=== PATIENT | female | born 1985 | race Caucasian/White ===

== ENCOUNTER → 2017-06-20 16:21 | Outpatient (CLI) | payer OTHER, SELFPAY ==
[2017-06-20 19:04] LABS: Chlamydia Trachomatis by PCR Negative (Negative); Neisserai gonorrhoeae by PCR Negative (Negative); Probe Check PASS; Sample Adequacy Control PASS; Specimen Processing Control PASS
== END ==
PROVIDERS: Visit Provider Obstetrics & Gynecology
DX: Z11.3 Encounter for screening for infections with a predominantly sexual mode of transmission (principal)
CPT/HCPCS: 87491; 87591

== ENCOUNTER → 2017-07-18 10:00 | Outpatient (CLI) | payer OTHER, SELFPAY ==
--- NOTE | 2017-07-18 10:00 | DT_ITS ---
This patient was seen during an EMR downtime July 18, 2017 - July 25, 2017. This patient may have a combination of paper and electronic documentation or all paper documentation. All documentation is viewable within the e-chart portion of [facility] for each patient visit.
[2017-07-24 02:42] LABS: Thyroid Stim Hormone (TSH) 3.23 uIU/mL (0.358-3.74)
[2017-07-24 02:48] LABS: Color, Urine Yellow (Yellow); Glucose, Dipstick NEGATIVE (Normal); Ketone-Dipstick Negative (Negative); Leukocyte Esterase-Dipstick 25 /ul (Negative); Nitrite-Dipstick Negative (Negative); Protein-Dipstick 15 mg/dl (Negative); Urine Bilirubin Dipstick Negative (Negative); Urine Clarity Sl Cldy (Clear); Urine Urobilinogen Normal (Normal)
[2017-07-24 02:49] LABS: Hematocrit 39.9 % (37-47); Hemoglobin 13.5 g/dl (12.0-15.0); Mean Corpuscular Volume 93.2 fL (81-99); Occult Blood-Urine Negative /ul (Negative); Red Blood Count 4.28 M/mm3 (4.2-5.4); White Blood Count 9.4 K/mm3 (4.4-11.0)
[2017-07-24 02:50] LABS: Differential Indicated SCAN CRITERIA MET; Lymphocyte % 19.6 % (19-41); Mean Corp Hgb Conc 33.8 g/gl (32-36); Mean Corpuscular Hgb 31.5 pg (27.0-32.0); Monocyte% 6.5 % (0-10); Neutrophil % 72.2 % (47-70); Platelet Count 196 K/mm3 (150-450); RBC Distribution Width CV 13.1 % (11.6-14.6); RBC Distribution Width SD 43.3 fl (35.1-43.9)
[2017-07-24 02:51] LABS: Absolute Lymphocyte Count 1.85 X10^3/ul (0.83-4.51); Absolute Neutrophil Count 8.6 X10^3/uL (2.0-7.7); Basophil% 0.1 % (0-1); Eosinophils% 1.6 % (0-5); Lymphocyte # 1.85 X10^3/ul (4.0); Neutrophil # 6.81 X10^3/uL (2.7-7.7); Platelet Estimate ADEQUATE (ADEQ); Red Cell Morphology NORM C+C NORMAL (NORM C&C)
[2017-07-24 13:36] LABS: Prenatal RPR NONREACTIVE (NONREACTIVE)
[2017-07-25 13:11] LABS: HIV - WCH Nonreactive (Nonreactive); Rubella IgG 216.4 IU/mL
[2017-07-25 13:13] LABS: HEPATITIS B SURFACE AG NEGATIVE; Hep C Antibodies <0.1
== END ==
PROVIDERS: Visit Provider Obstetrics & Gynecology
DX: Z34.82 Encounter for supervision of other normal pregnancy, second trimester (principal)
CPT/HCPCS: 36415; 81002; 84443; 85025; 86703; 86762; 86803; 87340

== ENCOUNTER → 2017-09-22 08:46 | Outpatient (CLI) | payer OTHER, SELFPAY ==
[2017-09-22 11:31] LABS: Glucose Challenge Gest 1H 50g 100 mg/dL (70-140); Hematocrit 34.5 % (37-47); Hemoglobin 11.3 g/dl (12.0-15.0); Mean Corp Hgb Conc 32.8 g/gl (32-36); Mean Corpuscular Hgb 31.3 pg (27.0-32.0); Mean Corpuscular Volume 95.6 fL (81-99); Mean Platelet Vol. 10.4 fl (6.2-12.0); Platelet Count 164 K/mm3 (150-450); RBC Distribution Width CV 13.6 % (11.6-14.6); RBC Distribution Width SD 46.9 fl (35.1-43.9); Red Blood Count 3.61 M/mm3 (4.2-5.4); White Blood Count 7.8 K/mm3 (4.4-11.0)
[2017-09-22 11:34] LABS: Scan Indicated on CBC? Y/N NO
== END ==
PROVIDERS: Visit Provider Obstetrics & Gynecology
DX: Z36.85 Encounter for antenatal screening for Streptococcus B (principal)
CPT/HCPCS: 36415; 82950; 85027

== ENCOUNTER 2017-10-06 19:39 | Outpatient (CLI) | payer OTHER, SELFPAY ==
[2017-10-06 20:23] VITALS: BMI 27.0
--- NOTE | 2017-10-06 23:55 | OB.TRI.NOTE ---
- Problem List (1) 29 weeks gestation of Status: Acute (2) False labor before 37 completed weeks of gestation Status: Acute Qualifiers: Trimester: third trimester Qualified Code(s): O47.03 - False labor before 37 completed weeks of gestation, third trimester History of Present Illness Date of Service: 10/06/17 Was patient seen by the physician?: No Reason For Visit: R/O LABOR Final LEONARDO: 12/22/17 Gestational age: 29 Weeks and 1 Days History of Present Illness: 31yo at 29wga with c/o discomfort Allergies No Known Allergies Allergy (Verified 10/30/14 10:41) NST - FHR Rate Baby A Baseline: 140 Variability:: Moderate Accelerations:: 15 x 15 Decelerations:: None NST Reactive:: Yes, Appropriate for gestational age FHR Category:: Category I Uterine Activity:: 0/10 Impression/Plan 31yo at 29wga with false labor, Cat I FHR -d/c home
== END 2017-10-06 20:45 | disposition home or self-care (01) ==
LOC: OBS 20:11 → WP 10-07 08:03
PROVIDERS: Visit Provider Obstetrics & Gynecology
DX: O47.03 False labor before 37 completed weeks of gestation, third trimester (principal); Z3A.29 29 weeks gestation of pregnancy
CPT/HCPCS: 59025; 59050; 99218; G0378

== ENCOUNTER → 2017-11-29 18:05 | Outpatient (CLI) | payer OTHER, SELFPAY ==
[2017-11-29 19:20] LABS: Group B Strep DNA By PCR Negative (Negative); Internal Control PASS; Probe Check PASS; Specimen Processing Control PASS
== END ==
PROVIDERS: Referring Provider Obstetrics & Gynecology; Visit Provider Obstetrics & Gynecology
DX: Z36.85 Encounter for antenatal screening for Streptococcus B (principal)
CPT/HCPCS: 87081; 87653

== ENCOUNTER 2017-12-17 10:44 | Inpatient (IN) | payer SELFPAY ==
[2017-12-17 10:15] VITALS: BMI 29.0
[2017-12-17 10:40] LABS: ROM Internal Control Test YES-OK TO RESULT pt. (Internal QC)
[2017-12-17 10:41] LABS: ROM Patient Test POSITIVE (Negative)
[2017-12-17] MEDS: Lactated Ringers 1,000 ML 50 ML IV (11:25)
[2017-12-17 11:46] LABS: Hematocrit 41.9 % (37-47); Hemoglobin 14.1 g/dl (12.0-15.0); Mean Corp Hgb Conc 33.7 g/gl (32-36); Mean Corpuscular Hgb 32.4 pg (27.0-32.0); Mean Corpuscular Volume 96.3 fL (81-99); Platelet Count 168 K/mm3 (150-450); RBC Distribution Width CV 13.2 % (11.6-14.6); RBC Distribution Width SD 45.1 fl (35.1-43.9); Red Blood Count 4.35 M/mm3 (4.2-5.4); Scan Indicated on CBC? Y/N NO; White Blood Count 14.8 K/mm3 (4.4-11.0)
--- NOTE | 2017-12-17 11:51 | PCM.PN.BLA ---
Progress Note LABOR PROGRESS NOTE 39 2/7 wk presents for dec FM today. AVSS EFM 130-140s avg variability. UCs q 4-7+ mins CX 3 cm in ofc last check ROM test positive 10:20 am. CBC plts 168 K and Hgb 14.1 g/dl. WBCs 71588 A/P: 39 2/7 wk SROM GBS neg. Admit Planned induction for Tu, 12/20/17 and planned epidural (concerned might be too thick to feel to push) prior to AROM Pitocin. H/o precipitous labor stated. Place epidural. Then begin pitocin, and exam to AROM if forebag noted.
--- NOTE | 2017-12-17 11:54 | PN_ITS ---
Progress Note LABOR PROGRESS NOTE 39 2/7 wk presents for dec FM today. AVSS EFM 130-140s avg variability. UCs q 4-7+ mins CX 3 cm in ofc last check ROM test positive 10:20 am. CBC plts 168 K and Hgb 14.1 g/dl. WBCs 22029 A/P: 39 2/7 wk SROM GBS neg. Admit Planned induction for Tu, 12/20/17 and planned epidural (concerned might be too thick to feel to push) prior to AROM Pitocin. H/o precipitous labor stated. Place epidural. Then begin pitocin, and exam to AROM if forebag noted.
[2017-12-17] MEDS: fentaNYL-bupivacaine (epidural) 100 ML BAG EPIDURAL (12:30)
--- NOTE | 2017-12-17 12:59 | PCM.PN.BLA ---
Progress Note LABOR PROGRESS NOTE Comfortable p epidural placed. Cool cloth on forehead 2/2 nausea with dec BP Fluid bolus infusing AVSS Pitocin initiated. EFM reassuring. 130-140 avg variability accels. UCs q 3-5 min CX: 7/-3 arom scant clear to pink discharge. A/P: 39 2/7 wk SROM by +ROM test. Small forebag noted and ruptured. Pitocin position changes oro/ str cath bladder to facilitate rotation, descent. Anticipate
[2017-12-17] MEDS: Oxytocin 30 units/NS 500 ml 30 UNITS/500 ML IV.SOLN IV (13:00)
[2017-12-17] MEDS: Oxytocin 30 units/NS 500 ml 30 UNITS/500 ML IV.SOLN 334 UNITS IV (14:50)
--- NOTE | 2017-12-17 14:55 | PCM.OB.VAG ---
Vaginal Delivery Maternal Presentation: Active Labor 39 2/7 wk presents with dec FM. +ROM Amniotic Membrane Rupture Type: Spontaneous at home Amniotic Fluid Description: Clear Final LEONARDO: 12/22/17 Final LEONARDO Source: US <20 weeks Gestational age: 39 Weeks and 2 Days Date of Procedure: 12/17/17 Pre-Operative Diagnosis: 39 2/7 wk SROM Post-Operative Diagnosis: same Surgery/ Procedure Performed: Spontaneous Vaginal Delivery Anesthesiologist: Lui Holloway Type of Anesthesia: Epidural Description of Procedure: of a todd viable female over intact perineum. Head delivered RUBÉN. No nuchal cord. Shoulders delivered easily. OP and nares bulb suctioned after delivery. Cord clamped x two and cut. to RN to be dried per pt request. 7# 14 oz. Ap 8/9 PP exam; 1st deg posterior vaginal laceration. repaired to hemostatic with single fig of 8 stitch of 3-0 Vicryl Rapide. no other lacerations or repair required. Placenta delivered by spont expulsion, expression. 3V intact, normal appearing with trailing membranes. EBL 350 cc pt and tolerated delivery well. to recovery stable condition. Ray silviano counts correct x two. Presentation: Vertex Placental Delivery Description: Spontaneous, Expressed Placenta Disposition: [facility] Cord Vessel Description: 3 Vessels Cord Entanglement: None Drain: [place] to straight drain Estimated Blood Loss: 350 Infant A gender: Female (1 minute): 8 (5 minute): 9 Episiotomy Description: None Laceration: Midline, Vaginal Extension/lac - repaired., 1st degree Medications given after delivery: IV Pitocin Complications: None
--- NOTE | 2017-12-17 14:59 | PCM.DCVAG ---
Discharge Diet: No Restrictions Discharge Activity: May Shower, May Take a Tub Bath Return to work on:: 01/30/18 May resume sexual activity in: 4-6 weeks Additional Activity Instructions:: Nothing in the vagina for 4-6 weeks. You may return to work/school in 6 weeks. Additional Instructions: If you experience any of the following, contact your healthcare provider. Bleeding that soaks a pad every hour for 2 hours Fever 100.4 or higher Unrelieved abdominal pain Problems urinating (including inability to urinate or burning while urinating). Visual changes Severe headache Flu-like symptoms Pain or redness in one of both of your breasts Pain, warmth, tenderness or swelling in your legs, especially the calf area Frequent nausea and vomiting Symptoms of depression or anxiety If you experience any of the following, call 911 or go to the nearest Emergency Room. Chest pain Problems breathing Seizure activity Partial or complete paralysis of a body part, slurred speech, weakness or drooping of the face, or a sudden inability to walk or hold your balance Allergies/Adverse Reactions: Allergies No Known Allergies Allergy (Verified 12/17/17 10:45) Medications to take at Discharge Vits [Prenatabs FA] 1 tablet PO DAILY 10/30/14 Dextrin [Fiber] 1 pwd PO DAILY 10/06/17 [place]-3 Fatty Acids [[place]-3] 1 cap PO DAILY 10/06/17 Please Follow Up With: Anisa Nayak MD - [phone] When: Call to make an appointment with your doctor in 6 weeks. Test Results: Test results from this visit will be discussed in further detail at your follow-up appointment, if applicable. Proposed Discharge Date: 12/19/17
--- NOTE | 2017-12-17 15:00 | DCINST_ITS ---
Discharge Diet: No Restrictions Discharge Activity: May Shower, May Take a Tub Bath Return to work on:: 01/30/18 May resume sexual activity in: 4-6 weeks Additional Activity Instructions:: Nothing in the vagina for 4-6 weeks. You may return to work/school in 6 weeks. Additional Instructions: If you experience any of the following, contact your healthcare provider. * Bleeding that soaks a pad every hour for 2 hours * Fever 100.4 or higher * Unrelieved abdominal pain * Problems urinating (including inability to urinate or burning while urinating). * Visual changes * Severe headache * Flu-like symptoms * Pain or redness in one of both of your breasts * Pain, warmth, tenderness or swelling in your legs, especially the calf area * Frequent nausea and vomiting * Symptoms of depression or anxiety If you experience any of the following, call 911 or go to the nearest Emergency Room. * Chest pain * Problems breathing * Seizure activity * Partial or complete paralysis of a body part, slurred speech, weakness or drooping of the face, or a sudden inability to walk or hold your balance Allergies/Adverse Reactions: Allergies No Known Allergies Allergy (Verified 12/17/17 10:45) Medications to take at Discharge Vits [Prenatabs FA] 1 tablet PO DAILY 10/30/14 Dextrin [Fiber] 1 pwd PO DAILY 10/06/17 [place]-3 Fatty Acids [[place]-3] 1 cap PO DAILY 10/06/17 Please Follow Up With: Anisa Nayak MD - [phone] When: Call to make an appointment with your doctor in 6 weeks. Test Results: Test results from this visit will be discussed in further detail at your follow- up appointment, if applicable. Proposed Discharge Date: 12/19/17
[2017-12-17] MEDS: Oxytocin 30 units/NS 500 ml 30 UNITS/500 ML IV.SOLN 167 UNITS IV (15:20)
[2017-12-17] MEDS: Acetaminophen 500 MG Tablet 1000 MG PO (18:50)
[2017-12-17 19:30] VITALS: BP 124/77; PULSE 100; RESP 18; TEMP 37.6
[2017-12-17 19:34] VITALS: TEMP 37.1
--- NOTE | 2017-12-17 19:36 | NURSING ---
infant CPR video provided to pt at this time; states she will review information and certificate, as well
[2017-12-18] VITALS (7 sets, daily range): BP systolic 91–122; BP diastolic 50–79; PULSE 67–89; RESP 14–18; TEMP 36.6–36.9; O2SAT 97
[2017-12-18] MEDS: Ibuprofen 600 MG Tablet PO ×4 (00:52→21:39)
--- NOTE | 2017-12-18 08:18 | PCM.PN.OB ---
Subjective: PPD#1 Doing well. Nursing. Baby is doing well with this. relates very good epidural in labor and happy with all. States more cramping with nursing that with her others, but Ibuprofen is ok and she has Advil at home. Would like to go home today if baby is released. - Physical Exam General: Alert, Oriented x3, Cooperative, No apparent distress HEENT: Atraumatic Abdomen: Soft - Fundus firm NT at umbilicus Psych/Mental Status: Normal Affect Vital Signs Temp Pulse Resp BP Pulse Ox 98.0 F 84 16 118/76 97 12/18/17 07:55 12/18/17 07:55 12/18/17 07:55 12/18/17 07:55 12/18/17 07:55 Oxygen Delivery Method Room Air Weight: 81.647 kg Body Mass Index (BMI) 29.0 Intake and Output for Last 24 Hours 12/16/17 12/17/17 12/18/17 23:59 23:59 22:59 Output Total 1500 / 1500 Balance -1500 / -1500 Laboratory Tests Past 24 Hrs 12/17/17 12/17/17 12/17/17 10:20 11:25 11:25 WBC 14.8 H RBC 4.35 Hgb 14.1 Hct 41.9 MCV 96.3 MCH 32.4 H MCHC 33.7 RDW 13.2 RDW Differential 45.1 H Plt Count 168 MPV 11.0 Vag Amniotic Fld Detect POSITIVE H Blood Type A POSITIVE Antibody Screen NEGATIVE Medical Necessity - Tobacco Use Smoking Status: Never smoker Assessment/Plan All Active Problems 29 weeks gestation of (Resolved) False labor before 37 completed weeks of gestation (Resolved) PPD#2 Stable pp. Discharge home today. RTO in 6 wk for appt as scheduled.
[2017-12-18] MEDS: Prenatal Vits Tablet 1 TABLET PO (10:01)
[2017-12-18] MEDS: Dibucaine 30 GM Tube 1 APPLIC TOPICAL (14:52)
[2017-12-19 01:06] VITALS: BP 111/69; PULSE 80; RESP 18; TEMP 36.6
--- NOTE | 2017-12-19 08:35 | PCM.PN.OB ---
Subjective: PPD#2 doing well with nursing. Minimal pain. Baby under bili lights yesterday for inc bili. Levels pending this am. Objective: Just finished nursing. Baby asleep on her lap - Physical Exam General: Alert, Oriented x3, Cooperative, No apparent distress HEENT: Atraumatic Neck: Supple Abdomen: Soft - Fundus firm NT at umbilicus Neurological: Cranial nerves II-XII grossly intact Psych/Mental Status: Normal Affect Vital Signs Temp Pulse Resp BP Pulse Ox 97.9 F 80 18 111/69 97 12/19/17 01:06 12/19/17 01:06 12/19/17 01:06 12/19/17 01:06 12/18/17 07:55 Oxygen Delivery Method Room Air Weight: 81.647 kg Body Mass Index (BMI) 29.0 Intake and Output for Last 24 Hours 12/18/17 12/18/17 12/19/17 00:59 23:59 23:59 Output Total Balance Medical Necessity - Tobacco Use Smoking Status: Never smoker Assessment/Plan All Active Problems 29 weeks gestation of (Resolved) False labor before 37 completed weeks of gestation (Resolved) PPD#2 Stable pp. Discharge home today. RTO in 6 wk for appt as scheduled.
[2017-12-19 09:30] VITALS: BP 115/64; PULSE 92; RESP 14; TEMP 36.9; O2SAT 95
[2017-12-19] MEDS: Prenatal Vits Tablet 1 TABLET PO (11:42)
== END 2017-12-19 11:55 | disposition home or self-care (01) | DRG 807 ==
LOC: WPOUT 10:46
PROVIDERS: Admitting Provider Obstetrics & Gynecology; Referring Provider Obstetrics & Gynecology; Visit Provider Obstetrics & Gynecology
DX: O71.4 Obstetric high vaginal laceration alone (principal); Z37.0 Single live birth; Z3A.39 39 weeks gestation of pregnancy
CPT/HCPCS: 59050; 84112; 85027; 86850; 86900; 99218; J7120; G0378

== ENCOUNTER 2018-01-02 09:52 | Outpatient (CLI) | payer OTHER, SELFPAY | END 2018-01-02 10:30 | disposition home or self-care (01) | LOC: WPOUT 09:53 → WP 09:53 | PROVIDERS: Referring Provider Obstetrics & Gynecology; Visit Provider Obstetrics & Gynecology | DX: Z39.1 Encounter for care and examination of lactating mother (principal) | CPT/HCPCS: 96152 ==

== ENCOUNTER → 2018-05-26 10:56 | Outpatient (CLI) | payer OTHER, SELFPAY ==
[2018-05-26 12:50] LABS: Progesterone Level 0.44 ng/mL (See Comment)
[2018-05-26 12:58] LABS: Pregnancy, Serum, hCG Quali. NEGATIVE Negative (0-9 Nonpreg)
== END ==
PROVIDERS: Visit Provider Obstetrics & Gynecology
DX: Z30.430 Encounter for insertion of intrauterine contraceptive device (principal)
CPT/HCPCS: 36415; 84144; 84703

== ENCOUNTER → 2019-02-21 13:25 | Outpatient (CLI) | payer SELFPAY ==
[2019-02-26 14:08] LABS: Age Gdln ACOG Testing 30-65 (.)
[2019-02-27 10:03] LABS: HPV APTIMA, High Risk Negative (Negative); HPV Reflexed? NOT INDICATED
== END ==
PROVIDERS: Visit Provider Obstetrics & Gynecology
DX: Z12.4 Encounter for screening for malignant neoplasm of cervix (principal)
CPT/HCPCS: 88175; G0145

== ENCOUNTER → 2019-10-09 10:07 | Outpatient (CLI) | payer SELFPAY ==
[2019-10-09 13:44] LABS: Color, Urine Straw (Yellow); Glucose, Dipstick Normal (Normal); Ketone-Dipstick Negative (Negative); Leukocyte Esterase-Dipstick Negative /ul (Negative); Nitrite-Dipstick Negative (Negative); Occult Blood-Urine Negative /ul (Negative); Protein-Dipstick Negative (Negative); Urine Bilirubin Dipstick Negative (Negative); Urine Clarity Clear (Clear); Urine Urobilinogen Normal (Normal)
[2019-10-09 13:46] LABS: Absolute Lymphocyte Count 1.92 X10^3/uL (0.83-4.51); Absolute Neutrophil Count 7.5 X10^3/uL (2.0-7.7); Basophil# 0.02 X10^3/uL; Basophil% 0.2 % (0-1); Eosinophil# 0.25 X10^3/uL; Eosinophils% 2.4 % (0-5); Hematocrit 39.7 % (37-47); Hemoglobin 13.2 g/dL (12.0-15.0); Lymphocyte # 1.92 X10^3/ul (4.0); Lymphocyte % 18.6 % (19-41); Mean Corp Hgb Conc 33.2 g/dL (32-36); Mean Corpuscular Hgb 31.1 pg (27.0-32.0); Mean Corpuscular Volume 93.4 fL (81-99); Monocyte# 0.58 X10^3/uL; Monocyte% 5.6 % (0-10); NRBC Flagged by Analyzer 0 % (0-5); Neutrophil # 7.49 X10^3/uL (2.7-7.7); Neutrophil % 72.7 % (47-70); Platelet Count 216 K/mm3 (150-450); RBC Distribution Width CV 12.7 % (11.6-14.6); RBC Distribution Width SD 43.2 fl (35.1-43.9); Red Blood Count 4.25 M/mm3 (4.2-5.4); White Blood Count 10.3 K/mm3 (4.4-11.0)
[2019-10-09 14:07] LABS: Thyroid Stim Hormone (TSH) 1.98 uIU/mL (0.358-3.74)
[2019-10-09 14:43] LABS: HIV - WCH Non-Reactive (Nonreactive); Hepatitis B Surface Antigen Non-Reactive (Nonreactive); Hepatitis C Antibody Non-Reactive (Nonreactive); Rubella IgG 153.9 IU/mL
[2019-10-09 14:57] LABS: Amphetamine Urine VISTA NEGATIVE (<1000 ng/mL); Barbiturate Urine VISTA NEGATIVE (< 200 ng/mL); Benzodiazepine Urine VISTA NEGATIVE (< 200 ng/mL); Cocaine Urine VISTA NEGATIVE (< 300 ng/mL); Ecstacy Urine VISTA NEGATIVE (< 500 ng/mL); Methadone Urine VISTA NEGATIVE (< 300 ng/mL); PCP Urine VISTA NEGATIVE (< 25 ng/mL); THC Urine VISTA NEGATIVE (< 50 ng/mL); Vista UDS pH Range 7
[2019-10-11 03:06] LABS: Chlamydia By Nucleic Acid AMP Negative (Negative)
[2019-10-11 05:28] LABS: Prenatal RPR NONREACTIVE (NONREACTIVE)
[2019-10-11 10:17] LABS: Gonococcus By Nucleic Acid AMP Negative (Negative)
== END ==
PROVIDERS: Visit Provider Obstetrics & Gynecology
DX: Z34.81 Encounter for supervision of other normal pregnancy, first trimester (principal); Z11.3 Encounter for screening for infections with a predominantly sexual mode of transmission
CPT/HCPCS: 36415; 80307; 81002; 84443; 85025; 86703; 86762; 86803; 87340; 87491; 87591

== ENCOUNTER → 2020-01-21 08:45 | Outpatient (CLI) | payer SELFPAY ==
[2020-01-21 11:07] LABS: Hematocrit 37.6 % (37-47); Hemoglobin 12.7 g/dL (12.0-15.0); Mean Corp Hgb Conc 33.8 g/dL (32-36); Mean Corpuscular Hgb 32.4 pg (27.0-32.0); Mean Corpuscular Volume 95.9 fL (81-99); Mean Platelet Vol. 10.4 fl (6.2-12.0); Platelet Count 173 K/mm3 (150-450); RBC Distribution Width SD 45.2 fl (35.1-43.9); Red Blood Count 3.92 M/mm3 (4.2-5.4); White Blood Count 11.4 K/mm3 (4.4-11.0)
[2020-01-21 11:13] LABS: Glucose Challenge Gest 1H 50g 97 mg/dL (70-140)
== END ==
PROVIDERS: Visit Provider Student in an Organized Health Care Education/Training Program
DX: Z34.82 Encounter for supervision of other normal pregnancy, second trimester (principal)
CPT/HCPCS: 36415; 82950; 85027

== ENCOUNTER → 2020-03-25 | Outpatient (CLI) | payer SELFPAY | END | disposition home or self-care (01) | LOC: LABSPEC 17:16 | PROVIDERS: PCP Family Medicine; Visit Provider Student in an Organized Health Care Education/Training Program | DX: Z36.85 Encounter for antenatal screening for Streptococcus B (principal) | CPT/HCPCS: 87081 ==

== ENCOUNTER 2020-04-17 07:00 | Inpatient (IN) | payer SELFPAY, OTHER ==
[2020-04-17] VITALS (42 sets, daily range): BP systolic 108–138; BP diastolic 57–91; PULSE 71–102; RESP 18; TEMP 36.5–37.4; O2SAT 94–100
[2020-04-17] MEDS: Lactated Ringers 1,000 ML 50 ML IV (07:50)
[2020-04-17 08:09] LABS: Absolute Lymphocyte Count 1.65 X10^3/uL (0.83-4.51); Absolute Neutrophil Count 6.3 X10^3/uL (2.0-7.7); Basophil# 0.03 X10^3/uL; Basophil% 0.3 % (0-1); Eosinophil# 0.07 X10^3/uL; Eosinophils% 0.8 % (0-5); Hematocrit 39.5 % (37-47); Hemoglobin 13.3 g/dL (12.0-15.0); Lymphocyte # 1.65 X10^3/ul (4.0); Lymphocyte % 18.5 % (19-41); Mean Corp Hgb Conc 33.7 g/dL (32-36); Mean Corpuscular Hgb 31.8 pg (27.0-32.0); Mean Corpuscular Volume 94.5 fL (81-99); Mean Platelet Vol. 11.9 fl (6.2-12.0); Monocyte# 0.72 X10^3/uL; Monocyte% 8.1 % (0-10); NRBC Flagged by Analyzer 0 % (0-5); Neutrophil # 6.32 X10^3/uL (2.7-7.7); Neutrophil % 70.8 % (47-70); Platelet Count 178 K/mm3 (150-450); RBC Distribution Width CV 12.7 % (11.6-14.6); RBC Distribution Width SD 43.8 fl (35.1-43.9); Red Blood Count 4.18 M/mm3 (4.2-5.4); White Blood Count 8.9 K/mm3 (4.4-11.0)
--- NOTE | 2020-04-17 08:29 | PCM.HP.BLA ---
History and Physical Date of Admission: 04/17/20 ACOG ANTEPARTUM RECORD - HISTORY AND PHYSICAL (04/17/2020) Name: RAJ DIMAS History of this : This is a 34 year old [id number] presents at 39 wks + 3 days gestation for induction. care is remarkable for a history of extremely fast labors. OB Physician: Beatrice Davidson 's Physician: LAWSON ...................................................................... : 1985 Age: 34 Address: [address] [place] [address] Phone: H) [phone] Insurance Carrier: Emergency Contact: BENEDICTO DIMAS, SPOUSE [phone] ...................................................................... Final LEONARDO: 04/21/20 By Ultrasound: PARITY: (G-Total Pregnancies P-Fullterm,Premature,Induced AB,Spont AB, Ectopics, Multiple,Living) LEONARDO CONFIRMATION: Final LEONARDO: 04/21/20 OB PROBLEM LIST: Office Class suggested as she has not met her goals for nursing. 2nd preg del at 31w. Next at term w rapid labor- 3h. Decline AFP and CF testing. 's brother has Down's Syndrome Maternal first cousin: Mental retardation ALLERGIES: NKDA MEDICATIONS: Calcium 500 500 mg calcium (1,250 mg) tablet One pill by mouth once a day magnesium 250 mg tablet One pill by mouth once a day 28 mg iron-800 mcg tablet One pill by mouth once a day SOCIAL HISTORY: Smoking - Never Alcohol Use - None Diet - balanced Diet, caffeine < 2 drinks per day and Just quit coffee and tea. water intake tries for 1/2 gal day. Lifestyle - moderate stress lifestyle and Exercise - busy w home and family, kids-7, 4, 2y Employer - [employer] Job Description - Illicit Drug Use - None Sexual Activity - single sexual partner and Residence - owns a home Place of - [place] Spouse-Sig Other Name - Benedicto Bullard Dimas Spouse-Sig Other Occupation - Owns a [employer] Spouse-Sig Other Phone No - work phone [phone] (leave message) Children Name(s) - Lis Tilley Sara PRIOR DELIVERY HISTORY DEL DATE GEST LAB WT LB WT OZ TYPE ANES LABOR TX 03 Jan 01 39 3 7 14 Vag Epidural No 20 Oct 15 31 2 3 8 Vag Epidural No 27 Jul 13 41 12 8 7 Vag Epidural No ANTEPARTUM FLOW CHART VISIT GE RTC FU F F CO U U DATE WK MD WKS HT PN HR M SS BP ED WT CO GL D EF ST __ ____ ___ __ __ ___ __ __ __ ___ __ __ __ ___ __ 22 Feb 38 + 134/76 0 185 15 Feb 37 CM 1 37 V + + 116/70 tr 185 - - 09 b 36 CM 1 36 V + + 126/64 sl 182 01 Mar 35 CM 1 35 V + + 128/60 0 180 - - 26 Feb 34 CM 1 34 V + + 128/70 sl 177 - - 3 50 -3 11 Feb 32 CM 2 31 + + 114/62 0 173 ne ne Jan 30 CM 2 30 + + 124/64 sl 170 - - 07 Jan 27 CM 2 27 + + 122/58 sl 164 - - 06 Jan 05 CM 4 22 U+ + 112/58 159 ne ne Nov 17 CM 4 17 + ? 122/68 153 - - ANTEPARTUM NOTE(S): Apr 07 2020: Mar 31 2020: Mar 25 2020: Mar 17 2020: Mar 11 2020: Feb 25 2020: constipation Feb 11 2020: Jan 21 2020: Dec 20 2020: Nov 15 2019: COMPREHENSIVE ANTEPARTUM NOTE(S): Apr 09 2020: H taken to OB. tkg Apr 07 2020: 38/0w visit. CE 4-5/60/-3 neg ferning/nitrazine. Desires induction 3 AM AROM/pit - term induction +FHR, fundal height 38cm.. F/u 1w. CM Apr 07 2020: Reporting low backache Tuesday night, did not sleep well. Ctx's off and on most of the day Sat, felt blah. [place] better Tuesday. Was doing laundry this morning and had some leaking fluid ~ 11 AM. Just before leaving to come to this appt, she noticed a little more. No spotting. Good FM. She would like to have a vag exam today, will check for SROM. Pitocin Induction scheduled for 04/17/20 @ 7 am w/Michele Mar 31 2020: 37/0w visit. CE unchanged from last week. F/u 1w. cm Mar 25 2020: Good FM. GBS and LARC done today. Voicing No concerns. kbm Mar 25 2020: 36/1w visit. GBS done. Declines LARC. 4 cm dilated. F/u 1w. CM Mar 17 2020: Raj reports having some cramping @ night when she lies down, but subsides w/position changes; sometimes sleeps in a recliner. Ctx's not occurring like prior to last visit. She and her had decided not to have steriod injections; she has left in triage after her last visit. Good FM. # given to call for [facility] to pre-register. kbestela Mar 17 2020: 35/0w visit. Feeling well, no consistent contractions over the past week. Had declined celestone. F/u 1w. CM Mar 11 2020: Raj has been having runs of ctx's, not every day. Worst was night when she thought she was going to head to the hospital. She took a warm bath, got off her feet and they gradually stopped. She has been feeling like she is going into labor early. Had been drinking dandelion tea, but since , she has stopped. Denies leaking fluid. Denies any spotting. She would like to have vag exam. H Mar 11 2020: 34/1w visit. Last pt had more intense contractions. CE today 3 cm. Pt does have history of PTD. Discussed celestone, pt will discuss with and call tomorrow. F/u 1w. CM Feb 25 2020: Raj is here for PNV. Continues to wear full support stockings. Does have some edema by end of day. Feeling well and having good FM. Having issues with constipation. Reminded to drink plenty of fluids. Urine dipped neg and neg. LSS Feb 25 2020: 32/0w visit. Feeling well. Discussed colace for constipation. may get vasectomy, number given. \F/u 2w. CM Feb 11 2020: Raj states she is doing well. Wearing bilateral thigh support stockings and is requesting an order. Jobst order given today. Some edema in her hands at the end of her day, but does not have edema in her LE with wearing support stockings, which she has for varicosities. Reporting good FM. Feb 11 2020: 30/0w visit. Discussed colace for constipation. F/u 2w. CM Jan 21 2020: Good FM. 1 Hr Glucose, CBC drawn this morning. Wearing compression stockings which helps varicosities not fees so achy. Minimal edema noted sometimes at the end of her day. Asking about a repeat US to relook at heart views for difficult visualization of some outflow tracts noted at comprehensive done @ 22 wks. States US costs her $275.00, but she will pay if thinks this is necessary. kbm Jan 21 2020: 27/0 w visit. Glucola and cbc today. Reports occasional contractions, once daily. Precautions discussed. Will refrain from follow up US as four chamber heart wnl. Discussed at length with patienth. F/u 2w. CM Dec 21 2019: Raj is here for PNV. Just had US. Anterior placenta but still having good FM. No edema but wears full panty hose support for her veins issues. No more issues with N/V. Feeling good. Urine dipped neg and neg. Glucola and instructions given. Questions answered. Voiced understanding. LSS Dec 21 2019: at 22/4w. Anatomy US wnl today, some difficult heart views- consider f/u US. f/u 4w with glucola. CM Nov 15 2019: Raj thinks she may have several patches of poison bryanna on her R jaw area, L lower neck area, R hip and upper inner L arm --- very itchy. She has been using Tecnu wash. Advised can use Caladryl lotion, topical Cortisone if needed and can take Benadryl for itching. Wearing bilateral thigh high support stockings, but elastic band at the top makes her feel very itchy; she would like to wear a panty ho Nov 14 2020: 17/3w visit. Poison bryanna in patches. Improving and now dried. Order for compression hose given. F/u 4w anatomy and visit. Oct 16 2019: TELEHEALTH NOB- Raj is a 33 yo G 4 P 3 James homemaker with LEONARDO 3-- planning a vag del at [facility] w epidural, using Dr Gold for post disch ped care and to breastfeed. Benedicto owns [employer]. They are pleased about the pg. Their children are 7, 5 and 21 months. Raj has NKA drugs, food or latex. She has some mild seasonal allergies. Her diet is balanced w minimal caffeine and 2+ liters of Oct 09 2019: See above. Dating US today confirms LEONARDO consistent with LMP. LEONARDO 3-8-21 with GA 12w1d. GC/CT on urine. Was here for annual 03/05 with pap at that time WNL. Head to toe negative. Missed menses packet reviewed. Will have first trimester labs drawn today, understands no news is good news. To return in 4 weeks for routine PNV with NOB RN call to be scheduled now. - Oct 09 2019: Raj is her for missed menses. LMP 07/16/19 Positive preg. test in office. 12 week 1 day, LEONARDO of 04/22/20. She and spouse are happy and excited about this . PAP 03/05 WNL. . No questions or concerns expressed today. pkt given to PT. NOB pkt given to PT and concent's signed. LJW REVIEW OF SYSTEMS: GENERAL - Denies fever, or chills SKIN - Denies rash, new skin lesions, or change in moles EYES - Denies blurred vision, or change in visual acuity EARS - Denies ear pain, or difficulty hearing NOSE - Denies nasal congestion, discharge, or bleeding MOUTH - Denies sore throat, or difficulty swallowing NECK - Denies pain or swelling RESPIRATORY - Denies shortness of breath, cough, wheezing CARDIOVASCULAR - Denies palpitations, chest pain, orthopnea, PND, peripheral edema, syncope or claudication GASTROINTESTINAL - Denies nausea, vomiting, diarrhea, constipation, Denies abdominal pain, melena and or bright red blood GENITOURINARY - Denies dysuria, frequency of urination, urgency, or hesitancy MUSCULOSKELETAL - Denies joint or muscle pain, or back pain NEUROLOGICAL - Denies localized numbness, weakness, or tingling PSYCHIATRIC - Denies depression, anxiety, substance abuse or suicide attempts ENDOCRINE - Denies heat or cold intolerance, weight loss or gain, increasing thirst HEMATO-IMMUNOLOGIC - Denies easy bruising, bleeding, oral ulcerations or recurrent infections GENETICS SCREENING: Age 35+ years: No Thalassemia: No Neural Tube Defect: No Down Syndrome: Yes, father's brother ELIS-SACHS: No Sickle Cell Disease: No Hemophilia: No Musc. Dystrophy: No Cystic Fibrosis: No-declines screening [place] Chorea: No Mental Retardation: No Fragile X: No Other genetic: No Other defects: No SABs/still births: No Drugs since LMP: No Comments: Maternal first cousin mental, retardation INFECTION HISTORY: High risk AIDS: No High risk Hepatitis: No Exposed to TB: No Exposed to Herpes: No Rash/viral illness since LMP: No History of STD: No MENSTRUAL HISTORY: PAST SUMMARY: PARITY: 1. Total Pregnancies............ 4 2. Full Term Pregnancies........ 2 3. Premature.................... 1 4. Abortions - Induced.......... 0 5. Abortions - Spontaneous...... 0 6. Ectopics..................... 0 7. Multiple Births.............. 0 8. Living Children.............. 3 PAST #1: Date of :.................. 08/10/12 Gestation Weeks:................ 41 Length of labor(hours):......... 12 Sex:............................ M Weight-lbs:............... 8 Weight-oz:................ 7 Type of Delivery:............... Vag Type of Anesthesia:............. Epidural Place of Delivery:.............. [place] Treatment of Labor?:.... No Comment: IND,MEC,KIWI VAC PAST #2: Date of :.................. 11/03/14 Gestation Weeks:................ 31 Length of labor(hours):......... 2 Sex:............................ M Weight-lbs:............... 3 Weight-oz:................ 8 Type of Delivery:............... Vag Type of Anesthesia:............. Epidural Place of Delivery:.............. [facility] Treatment of Labor?:.... No Comment: PPROM, 1 MO NICU PAST #3: Date of :.................. 12/17/17 Gestation Weeks:................ 39 Length of labor(hours):......... 3 Sex:............................ F Weight-lbs:............... 7 Weight-oz:................ 14 Type of Delivery:............... Vag Type of Anesthesia:............. Epidural Place of Delivery:.............. [place] Treatment of Labor?:.... No Comment: NO PHYSICAL EXAMINATION General Appearence: 34 yo female in no acute distress Vital Signs: AF, VSS Heart: RRR without rubs or gallops Lungs: CTA x 2 Breasts: deferred Abdomen: gravid Pelvis: Cervix: Plus/50 intact Presentation: cephalic Station: -2 Fetus: Size: AGA Movement: present Heart: present LAB TEST(S) ORDERED SINCE:07/26/19 01/21/2020 GLUCOSE CHALLENGE GEST 1H 50G 01/21/2020 CBC-COMPLETE BLOOD CNT NO DIFF 10/11/2019 RPR 10/11/2019 CHLAMYDIA/GC HOLLIS APTIMA 10/09/2019 URINE DRUG SCREEN (VISTA) 10/09/2019 URINALYSIS, ROUTINE (DIPSTICK) 10/09/2019 THYROID STIM HORMONE (TSH) 10/09/2019 RUBELLA IGG 10/09/2019 T AND S-NO CHARGE W/PNP 10/09/2019 HIV - [facility] 10/09/2019 HEPATITIS C ANTIBODY 10/09/2019 HEPATITIS B SURFACE ANTIGEN 10/09/2019 CBC W/DIFF, AUTOMATED 04/17/2020 CBC W/DIFF, AUTOMATED 03/28/2020 RULE OUT BETA STREP (GRP. B) == ==== Order Observation Description Value Ref_Range A* Site == ==== CBC W/DIFF, AUT NOTE MANTILLA CBC W/DIFF, AUT WBC 8.9 K/mm3 4.4-11.0 ML CBC W/DIFF, AUT RBC 4.18 M/mm3 4.2-5.4 L ML CBC W/DIFF, AUT HGB 13.3 g/dL 12.0-15.0 ML CBC W/DIFF, AUT HCT 39.5 37-47 ML CBC W/DIFF, AUT MCV 94.5 fL 81-99 ML CBC W/DIFF, AUT MCH 31.8 pg 27.0-32.0 ML CBC W/DIFF, AUT MCHC 33.7 g/dL 32-36 ML CBC W/DIFF, AUT RDW CV 12.7 11.6-14.6 ML CBC W/DIFF, AUT RDW SD 43.8 fl 35.1-43.9 ML CBC W/DIFF, AUT PLT 178 K/mm3 150-450 ML CBC W/DIFF, AUT MPV 11.9 fl 6.2-12.0 ML CBC W/DIFF, AUT NEUT% 70.8 47-70 H ML CBC W/DIFF, AUT LY% 18.5 19-41 L ML CBC W/DIFF, AUT MONO% 8.1 0-10 ML CBC W/DIFF, AUT EO% 0.8 0-5 ML CBC W/DIFF, AUT BASO% 0.3 0-1 ML CBC W/DIFF, AUT IG% 1.500 0.0-0.9 H ML IG% - Immature Granulocytes (promyelocytes, myelocytes and metamyelocytes) > 1% indicates that a LEFT SHIFT is Present. CBC W/DIFF, AUT ABSOLUTE NEUT 6.3 X10 3/uL 2.0-7.7 ML CBC W/DIFF, AUT ABSOLUTE LYMPH 1.65 X10 3/uL 0.83-4.51 ML CBC W/DIFF, AUT NUCLEATED RBC 0 0-5 ML RULE OUT BETA S NOTE MANTILLA GLUCOSE CHALLEN NOTE [place] GLUCOSE CHALLEN GLU GEST 50G 1H 97 mg/dL 70-140 ML CBC-COMPLETE BL NOTE MANTILLA CBC-COMPLETE BL WBC 11.4 K/mm3 4.4-11.0 H ML CBC-COMPLETE BL RBC 3.92 M/mm3 4.2-5.4 L ML CBC-COMPLETE BL HGB 12.7 g/dL 12.0-15.0 ML CBC-COMPLETE BL HCT 37.6 % 37-47 ML CBC-COMPLETE BL MCV 95.9 fL 81-99 ML CBC-COMPLETE BL MCH 32.4 pg 27.0-32.0 H ML CBC-COMPLETE BL MCHC 33.8 g/dL 32-36 ML CBC-COMPLETE BL RDW CV 13.0 % 11.6-14.6 ML CBC-COMPLETE BL RDW SD 45.2 fl 35.1-43.9 H ML CBC-COMPLETE BL PLT 173 K/mm3 150-450 ML CBC-COMPLETE BL MPV 10.4 fl 6.2-12.0 ML RPR NOTE MANTILLA RPR RPR NONREACTIVE NONREACTIVE ML Reason for Type AND Screen/Red Cells: Surgery? N [facility]~[address] [place], [address]~ T AND BLOOD TYPE GEL A POSITIVE N ML T AND AB SCREEN GEL NEGATIVE N ML URINE DRUG SCRE NOTE MANTILLA URINE DRUG SCRE TO BE CONFIRMED ML CONFIRMATORY TESTING FOR ALL POSITIVE URINE DRUG SCREEN RESULTS WILL ONLY BE SENT OUT UPON PHYSICIAN ORDER. VISTA Urine Drug Screen methods provide only preliminary analytical test results. A more specific alternate chemical method must be used in order to obtain a confirmed analytical result. Gas chromatography/mass spectrometery (GC/MS) is the preferred confirmatory method. Clinical consideration and professional judgement should be applied to any drug of abuse test result, particularly when preliminary positive results are used. URINE TCA TESTING MUST BE ORDERED SEPARATELY. USE TEST MNEMONIC: UTCA URINE DRUG SCRE VISTA UDS PH 7 ML URINE DRUG SCRE AMPHETAMINES NEGATIVE <1000 ng/mL ML URINE DRUG SCRE BARBITIURATES NEGATIVE < 200 ng/mL ML URINE DRUG SCRE BENZODIAZIPINE NEGATIVE < 200 ng/mL ML URINE DRUG SCRE COCAINE NEGATIVE < 300 ng/mL ML URINE DRUG SCRE ECSTACY NEGATIVE < 500 ng/mL ML URINE DRUG SCRE METHADONE NEGATIVE < 300 ng/mL ML URINE DRUG SCRE OPIATES NEGATIVE < 300 ng/mL ML URINE DRUG SCRE PCP NEGATIVE < 25 ng/mL ML URINE DRUG SCRE THC NEGATIVE < 50 ng/mL ML HEPATITIS C ANT NOTE [place] HEPATITIS C ANT HEPATITIS C AB Non-Reactive Nonreactive ML Non Reactive: < 0.8 Equivocal: >/= 0.8 to < 1.0 Reactive: >/= 1.0 The CDC recommends that a reactive/equivocal HCV antibody result be followed up by the HCV Nucleic Acid Amplification test ([id number]) HEPATITIS B JYOTHI NOTE MANTILLA HEPATITIS B JYOTHI HEPB SURFACE AG Non-Reactive Nonreactive ML HIV - [facility] NOTE [facility]A HIV - [facility] HIV - [facility] Non-Reactive Nonreactive ML RUBELLA IGG NOTE MANTILLA RUBELLA IGG RUBELLA IGG 153.9 IU/mL ML Antibody results Interpretation of Immune Status < 5 IU/ml Presumed Non-immune 5 - < 10 IU/ml Equivocal > or = 10 IU/ml Presumed Immune THYROID STIM HO NOTE MANTILLA THYROID STIM HO TSH 1.98 uIU/mL 0.358-3.74 ML CBC W/DIFF, AUT NOTE MANTILLA CBC W/DIFF, AUT WBC 10.3 K/mm3 4.4-11.0 ML CBC W/DIFF, AUT RBC 4.25 M/mm3 4.2-5.4 ML CBC W/DIFF, AUT HGB 13.2 g/dL 12.0-15.0 ML CBC W/DIFF, AUT HCT 39.7 % 37-47 ML CBC W/DIFF, AUT MCV 93.4 fL 81-99 ML CBC W/DIFF, AUT MCH 31.1 pg 27.0-32.0 ML CBC W/DIFF, AUT MCHC 33.2 g/dL 32-36 ML CBC W/DIFF, AUT RDW CV 12.7 % 11.6-14.6 ML CBC W/DIFF, AUT RDW SD 43.2 fl 35.1-43.9 ML CBC W/DIFF, AUT PLT 216 K/mm3 150-450 ML CBC W/DIFF, AUT MPV 11.0 fl 6.2-12.0 ML CBC W/DIFF, AUT NEUT% 72.7 % 47-70 H ML CBC W/DIFF, AUT LY% 18.6 % 19-41 L ML CBC W/DIFF, AUT MONO% 5.6 % 0-10 ML CBC W/DIFF, AUT EO% 2.4 % 0-5 ML CBC W/DIFF, AUT BASO% 0.2 % 0-1 ML CBC W/DIFF, AUT IM GRAN % 0.500 % 0.0-0.9 ML IG% - Immature Granulocytes (promyelocytes, myelocytes and metamyelocytes) > 1% indicates that a LEFT SHIFT is Present. CBC W/DIFF, AUT ABSOLUTE NEUT 7.5 X10 3/uL 2.0-7.7 ML CBC W/DIFF, AUT ABSOLUTE LYMPH 1.92 X10 3/uL 0.83-4.51 ML CBC W/DIFF, AUT NRBC, FLAGGED 0 % 0-5 ML URINALYSIS, ROU NOTE MANTILLA URINALYSIS, ROU COLOR Straw Yellow ML URINALYSIS, ROU CLARITY Clear Clear ML URINALYSIS, ROU GLUCOSE, UR Normal mg/dl Normal ML URINALYSIS, ROU BILIRUBIN URINE Negative mg/dL Negative ML URINALYSIS, ROU KETONE UR Negative mg/dl Negative ML URINALYSIS, ROU SP.GR. DIPSTX 1.010 1.002-1.030 ML URINALYSIS, ROU PH UR 7.0 5.0 - 8.0 ML URINALYSIS, ROU PROT DIPSTX Negative mg/dl Negative ML URINALYSIS, ROU UROBILI Normal mg/dl Normal ML URINALYSIS, ROU NITRITE UR Negative Negative ML URINALYSIS, ROU OCCULT BLOOD-UR Negative /ul Negative ML URINALYSIS, ROU LEUK ESTERASE Negative /ul Negative ML CHLAMYDIA/GC NA NOTE MANTILLA CHLAMYDIA/GC NA CHLAMY,NUC ACID Negative Negative LC CHLAMYDIA/GC NA GC BY NUC ACID Negative Negative LC Performed at: = - [facility] [id number] Design Engineer: Samanta Kelley MD, Phone: [phone] Group B Beta Streptococcus is not isolated. == ==== Impression /Plan: 39 wks + 3 days intrauterine for induction. Plan epidural before rupture of membranes given her history of fast labor. Preparations in progress for delivery.
[2020-04-17] MEDS: Lactated Ringers 500 ML 999 ML IV (08:48)
[2020-04-17] MEDS: fentaNYL-bupivacaine (epidural) 100 ML BAG EPIDURAL (10:07)
[2020-04-17] MEDS: Oxytocin 30 units/NS 500 ml 30 UNITS/500 ML IV.SOLN IV (10:16)
--- NOTE | 2020-04-17 10:53 | PN.OBGYN_ITS ---
Subjective: Patient comfortable in bed with epidural - Physical Exam Vitals/I&O's: Vital Signs Temp Pulse BP Pulse Ox 98.6 F 74 122/57 H 99 04/17/20 09:52 04/17/20 10:32 04/17/20 10:32 04/17/20 10:31 Weight: 186 lb 6 oz Body Mass Index (BMI) 30.0 Intake and Output for Last 24 Hours 04/15/20 04/16/20 04/17/20 23:59 23:59 23:59 Intake Total 595.20 / 595.20 Balance 595.20 / 595.20 General: Alert, Cooperative, No apparent distress HEENT: Atraumatic, Normocephalic Oral: Moist Mucosa Neck: Supple Extremities: No clubbing, No cyanosis, No edema Neurological: Neuro grossly intact Psych/Mental Status: Normal Affect, Appropriate, Alert and oriented to time, place, person, mood and affect Laboratory Results 04/17/20 07:50: WBC 8.9, RBC 4.18 L, Hgb 13.3, Hct 39.5, MCV 94.5, MCH 31.8, MCHC 33.7, RDW Std Deviation 43.8, RDW Coeff of Ijll 12.7, Plt Count 178, MPV 11.9, Immature Gran % (Auto) 1.500 H, Neut % (Auto) 70.8 H, Lymph % (Auto) 18.5 L, [place] % (Auto) 8.1, Eos % (Auto) 0.8, Baso % (Auto) 0.3, Absolute Neuts (auto) 6.3, Absolute Lymphs (auto) 1.65, Nucleated RBC % 0 04/17/20 07:50: Blood Type Pending, Antibody Screen Pending Current Medications Acetaminophen (Acetaminophen 500 Mg Tablet) 500 - 1,000 mg PO Q6H PRN PRN PRN Reason: Pain Score 1-3 Al Hydroxide/Mg Hydroxide (Mag Hydrox/Al Hydrox/Simeth 30 Ml Udc) 15 - 30 ml PO Q4H PRN PRN PRN Reason: INDIGESTION Citric Acid/Sodium Citrate (Sodium Citrate/Citric Acid 30 Ml Udc) 30 ml PO X1 PRN PRN Reason: Section Ephedrine Sulfate (Ephedrine Sulfate 50 Mg/Ml Ampul) 10 mg IV Q10M PRN PRN Reason: hypotension Ephedrine Sulfate (Ephedrine Sulfate 50 Mg/Ml Ampul) 10 mg IM Q30M PRN PRN Reason: hypotension Fentanyl Citrate (Fentanyl 100 Mcg/2 Ml Ampul) 25 - 50 mcg IV Q2H PRN PRN PRN Reason: Pain Score 4-10 Fentanyl/Bupivacaine/Sodium Chlor (Fentanyl-Bupivacaine (Epidural) 100 Ml Bag) 0 ml EPIDURAL UD [facility]; Protocol Last Admin: 04/17/20 10:07 Dose: 100 ml Documented by: Lactated Ringer's () 500 mls @ 999 mls/hr IV .Q31M PRN PRN Reason: Epidural Last Infusion: 04/17/20 09:31 Dose: Infused Documented by: Lactated Ringer's () 500 mls @ 999 mls/hr IV .Q31M PRN PRN Reason: Corrective Measures Lactated Ringer's () 1,000 mls @ 50 mls/hr IV .Q20H [facility] Last Infusion: 04/17/20 09:43 Dose: 200 mls/hr Documented by: Oxytocin/Sodium Chloride () 30 units in 500 mls @ 2 mls/hr IV .Q250H [facility] Last Infusion: 04/17/20 10:47 Dose: 4 mls/hr Documented by: Nalbuphine HCl (Nalbuphine 10 Mg/Ml Ampul) 5 mg IV Q3H PRN PRN PRN Reason: ITCHING Naloxone HCl (Naloxone 0.4 Mg/Ml Syringe) 0.02 mg IV Q1M PRN PRN Reason: RR <10 and pt unresponsive Ondansetron HCl (Ondansetron 4 Mg/2 Ml Vial) 4 mg IV Q4H PRN PRN PRN Reason: NAUSEA Prochlorperazine Edisylate (Prochlorperazine 10 Mg/2 Ml Vial) 10 mg IV Q6H PRN PRN PRN Reason: NAUSEA Sodium Chloride (0.9% Saline Lock 10 Ml Syringe) 10 - 40 ml IV X1 PRN PRN Reason: SALINE FLUSH Medical Necessity - Tobacco Use Smoking Status: Never smoker Assessment/Plan All Active Problems 29 weeks gestation of (Resolved) False labor before 37 completed weeks of gestation (Resolved) Patient seen and examined AROM for clear fluid. Cervical exam 4/60/-3. heart tones: 130/moderate variability/positive accelerations/negative decel erations. Continue titrate Pitocin with category 1 tracing
[2020-04-17] MEDS: Ondansetron 4 MG/2 ML Vial IV (12:11)
[2020-04-17] MEDS: Oxytocin 30 units/NS 500 ml 30 UNITS/500 ML IV.SOLN 334 UNITS IV (13:15)
--- NOTE | 2020-04-17 13:26 | PCM.OPRPT ---
Vaginal Delivery Date of Procedure: 04/17/20 Pre-Operative Diagnosis: Term Post-Operative Diagnosis: Term Surgery/ Procedure Performed: Spontaneous Vaginal Delivery Type of Anesthesia: Epidural Description of Procedure: Normal spontaneous vaginal delivery of a viable male infant, vertex RUBÉN. Head and shoulders delivered with ease. Cord cut and clamped. Baby handed to nursing. Placenta delivered via cord traction and fundal massage. No lacerations were noted. EBL 300 cc Apgars 9/9
--- NOTE | 2020-04-17 13:27 | DCINST_ITS ---
Discharge Diet: No Restrictions Discharge Activity: Return to Normal Activity, May Drive, May Shower May resume sexual activity in: 4-6 weeks Weight Bearing Status: Weight bearing as tolerated Call your doctor if your incision/area has: Continuous Slow Oozing, Foul Smelling Discharge Call your doctor if you observe: Fever of 101 or Higher, Shortness of breath, Chest pain Additional Instructions: If you experience any of the following, contact your healthcare provider. * Bleeding that soaks a pad every hour for 2 hours * Fever 100.4 or higher * Unrelieved incision or abdominal pain * Swelling, redness, discharge or bleeding from your incision or episiotomy site * Your incision begins to separate * Problems urinating (including inability to urinate or burning while urinating). * Visual changes * Severe headache * Flu-like symptoms * Pain or redness in one of both of your breasts * Pain, warmth, tenderness or swelling in your legs, especially the calf area * Frequent nausea and vomiting * Symptoms of depression or anxiety If you experience any of the following, call 911 or go to the nearest Emergency Room. * Chest pain * Problems breathing * Seizure activity * Partial or complete paralysis of a body part, slurred speech, weakness or drooping of the face, or a sudden inability to walk or hold your balance Allergies/Adverse Reactions: Allergies No Known Allergies Allergy (Verified 12/17/17 10:45) Medications to take at Discharge Vits [Prenatabs FA] 1 tablet PO DAILY 10/30/14 Chacon-3 Fatty Acids [Chacon-3] 1 cap PO DAILY 10/06/17 Magnesium 200 mg PO QHS 04/17/20 Please Follow Up With: Beatrice Rodriguez DO When: 4 to 6 weeks Primary Care Physician: Babar Wallace III, MD [Primary Care Provider] - Test Results: Test results from this visit will be discussed in further detail at your follow- up appointment, if applicable.
--- NOTE | 2020-04-17 13:27 | PCM.DCVAG ---
Discharge Diet: No Restrictions Discharge Activity: Return to Normal Activity, May Drive, May Shower May resume sexual activity in: 4-6 weeks Weight Bearing Status: Weight bearing as tolerated Call your doctor if your incision/area has: Continuous Slow Oozing, Foul Smelling Discharge Call your doctor if you observe: Fever of 101 or Higher, Shortness of breath, Chest pain Additional Instructions: If you experience any of the following, contact your healthcare provider. Bleeding that soaks a pad every hour for 2 hours Fever 100.4 or higher Unrelieved incision or abdominal pain Swelling, redness, discharge or bleeding from your incision or episiotomy site Your incision begins to separate Problems urinating (including inability to urinate or burning while urinating). Visual changes Severe headache Flu-like symptoms Pain or redness in one of both of your breasts Pain, warmth, tenderness or swelling in your legs, especially the calf area Frequent nausea and vomiting Symptoms of depression or anxiety If you experience any of the following, call 911 or go to the nearest Emergency Room. Chest pain Problems breathing Seizure activity Partial or complete paralysis of a body part, slurred speech, weakness or drooping of the face, or a sudden inability to walk or hold your balance Allergies/Adverse Reactions: Allergies No Known Allergies Allergy (Verified 12/17/17 10:45) Medications to take at Discharge Vits [Prenatabs FA] 1 tablet PO DAILY 10/30/14 [place]-3 Fatty Acids [[place]-3] 1 cap PO DAILY 10/06/17 Magnesium 200 mg PO QHS 04/17/20 Please Follow Up With: Beatrice Rodriguez DO When: 4 to 6 weeks Primary Care Physician: Babar Wallace III, MD [Primary Care Provider] - Test Results: Test results from this visit will be discussed in further detail at your follow-up appointment, if applicable.
[2020-04-17] MEDS: Hydrocortisone 2.5% Crm 1 APPLIC TOPICAL (14:11)
[2020-04-17] MEDS: 0.9% Saline Lock 10 ML Syringe IV (16:20)
[2020-04-17] MEDS: Ibuprofen 600 MG Tablet PO (21:18)
[2020-04-18] VITALS (7 sets, daily range): BP systolic 121–133; BP diastolic 65–88; PULSE 69–83; RESP 16–18; TEMP 36.6–36.8; O2SAT 97
[2020-04-18] MEDS: Acetaminophen 500 MG Tablet 1000 MG PO (01:31)
--- NOTE | 2020-04-18 02:26 | NURSING ---
04/17/2020 2030 Offered to bath baby at this time, mother declines at this time stating plans to feed baby and get some rest.
[2020-04-18] MEDS: Ibuprofen 600 MG Tablet PO ×3 (04:36→16:20)
[2020-04-18] MEDS: Senna/Docusate Sodium 1 Tablet PO (04:39)
--- NOTE | 2020-04-18 08:24 | PN.OBGYN_ITS ---
Subjective: No overnight complaints. Pain well controlled. Minimal lochia. - Physical Exam Vitals/I&O's: Vital Signs Temp Pulse Resp BP Pulse Ox 98.3 F 75 18 133/88 H 96 04/18/20 04:37 04/18/20 04:37 04/18/20 04:37 04/18/20 04:37 04/17/20 20:26 Oxygen Delivery Method Room Air Weight: 186 lb 6 oz Body Mass Index (BMI) 30.0 Intake and Output for Last 24 Hours 04/16/20 04/17/20 04/18/20 23:59 23:59 23:59 Intake Total 1813.10 / 1813.10 Output Total 2049 / 2049 Balance -236.90 / -236.90 General: Alert, Oriented x3, Cooperative, No apparent distress HEENT: Atraumatic, Normocephalic Oral: Moist Mucosa Neck: Supple Abdomen: Soft, Non Tender, - - Uterus firm below umbilicus Extremities: No clubbing, No cyanosis, No edema Neurological: Neuro grossly intact Psych/Mental Status: Normal Affect, Appropriate, Alert and oriented to time, place, person, mood and affect Laboratory Results 04/17/20 07:50: Blood Type A POSITIVE, Antibody Screen NEGATIVE Current Medications Acetaminophen (Acetaminophen 500 Mg Tablet) 1,000 mg PO Q8H PRN PRN PRN Reason: Pain Score 1-3 Last Admin: 04/18/20 01:31 Dose: 1,000 mg Documented by: Bisacodyl (Bisacodyl 10 Mg Suppository) 10 mg RC UD PRN PRN Reason: If no BM Dibucaine (Dibucaine 30 Gm Tube) 1 applic TOPICAL TID PRN PRN; Protocol PRN Reason: Discomfort Hydrocortisone (Hydrocortisone 2.5% Crm) 1 applic TOPICAL TID PRN PRN; Protocol PRN Reason: Discomfort Last Admin: 04/17/20 14:11 Dose: 1 applicatio Documented by: Ibuprofen (Ibuprofen 600 Mg Tablet) 600 mg PO Q6H PRN PRN PRN Reason: Pain Score 1-3 Last Admin: 04/18/20 04:36 Dose: 600 mg Documented by: Ondansetron HCl (Ondansetron 4 Mg/2 Ml Vial) 4 mg IV Q4H PRN PRN PRN Reason: Nausea Oxycodone HCl (Oxycodone 5 Mg Tablet) 5 mg PO Q4H PRN PRN PRN Reason: Pain Score 4-10 Senna/Docusate Sodium (Senna/Docusate Sodium 1 Tablet) 1 - 2 tablet PO DAILY PRN PRN PRN Reason: Constipation Last Admin: 04/18/20 04:39 Dose: 2 tablet Documented by: Simethicone (Simethicone 80 Mg Tablet) 80 mg PO PCHS PRN PRN Reason: Indigestion/Stomach pain Sodium Chloride (0.9% Saline Lock 10 Ml Syringe) 5 - 15 ml IV UD PRN PRN Reason: SALINE FLUSH Last Admin: 04/17/20 16:20 Dose: 5 ml Documented by: Medical Necessity - Tobacco Use Smoking Status: Never smoker Assessment/Plan All Active Problems 29 weeks gestation of (Resolved) False labor before 37 completed weeks of gestation (Resolved) day 1. Breast-feeding. 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
== END 2020-04-18 16:40 | disposition home or self-care (01) | DRG 807 ==
PROVIDERS: Student in an Organized Health Care Education/Training Program; Admitting Provider Obstetrics & Gynecology; PCP Family Medicine; Referring Provider Obstetrics & Gynecology; Visit Provider Obstetrics & Gynecology
DX: O80 Encounter for full-term uncomplicated delivery (principal); Z37.0 Single live birth; Z3A.39 39 weeks gestation of pregnancy
CPT/HCPCS: 59025; 59050; 85025; 86850; 86900; 86901; 99218; J7120; A4216; G0378; J2405

== ENCOUNTER → 2020-05-09 | Outpatient (CLI) | payer OTHER, SELFPAY ==
[2020-05-09 10:18] VITALS: BMI 27.1
[2020-05-09 12:06] LABS: Mucous, Urine 0 SEEN /hpf (<or=2+)
[2020-05-09 12:10] LABS: Color, Urine Yellow (Yellow); Glucose, Dipstick Normal (Normal); Ketone-Dipstick Negative (Negative); Leukocyte Esterase-Dipstick 500 /ul (Negative); Nitrite-Dipstick Negative (Negative); Occult Blood-Urine 150 /ul (Negative); Protein-Dipstick Negative (Negative); Specific Gravity, Urine 1.005 (1.002-1.030); Urine Bilirubin Dipstick Negative (Negative); Urine Clarity Sl. Cloudy (Clear); Urine Urobilinogen Normal (Normal); Urine pH 6.5 (5.0 - 8.0)
[2020-05-09 12:18] LABS: Bacteria 1+ /hpf (None Seen); Red Blood Cells-Urine 10-25 SEEN /hpf (0-5); Squamous Epithelial Cells - UA 0-5 SEEN /hpf (5-10); White Blood Cells 25-50 SEEN /hpf (0-5)
== END | disposition home or self-care (01) ==
LOC: LABSPEC 12:02
PROVIDERS: PCP Family Medicine; Referring Provider Physician Assistant Surgical; Visit Provider Physician Assistant Surgical
DX: N39.0 Urinary tract infection, site not specified (principal)
CPT/HCPCS: 81001; 87086; 87088

== ENCOUNTER → 2023-04-18 | Outpatient (CLI) | payer OTHER, SELFPAY ==
[2023-04-22 16:09] LABS: HPV APTIMA, High Risk Negative (Negative)
== END | disposition home or self-care (01) ==
LOC: LABSPEC 15:50
PROVIDERS: Referring Provider Advanced Practice Midwife; Visit Provider Advanced Practice Midwife
DX: Z12.4 Encounter for screening for malignant neoplasm of cervix (principal)
CPT/HCPCS: 87624; 88175; G0145

== ENCOUNTER → 2024-01-09 | Outpatient (CLI) | payer SELFPAY, OTHER ==
--- NOTE | 2024-01-09 12:20 | US_ITS ---
INDICATION: UTI EXAMINATION: Ultrasound US Kidney(s) complete (eg, kidneys and bladder) TECHNIQUE: Aceves scale and color doppler images were obtained of the kidneys. COMPARISON: No relevant prior comparison study available FINDINGS: RIGHT KIDNEY: The right kidney measures 13.3 cm in length. There is no hydronephrosis. No shadowing calculus, focal lesion or perinephric collection is demonstrated. LEFT KIDNEY: The left kidney measures 12.6 cm in length. There is no hydronephrosis. No shadowing calculus, focal lesion or perinephric collection is demonstrated. URINARY BLADDER: The urinary bladder volume measures 799 mL. Bilateral ureteral jets are visualized. No acute abnormality. The post void residual measures 28 mL. US/Kidney and Bladder IMPRESSION: Within normal limits renal ultrasound. Electronically Signed: Mariel Butler MD at 8:17 EST ,
== END | disposition home or self-care (01) ==
PROVIDERS: Referring Provider Urology; Visit Provider Urology
DX: N39.0 Urinary tract infection, site not specified (principal)
CPT/HCPCS: 76770